=== PATIENT | male | born 2005 | race African-American/Black ===

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

== ENCOUNTER 2024-08-04 20:37 | Emergency (ER) | payer SELFPAY ==
[2024-08-04 20:37] VITALS: BP 135/78; PULSE 83; RESP 16; TEMP 36.9; O2SAT 99; BMI 25.9
--- NOTE | 2024-08-04 20:41 | RAD_ITS ---
EXAM: XR RIGHT SHOULDER COMPLETE, 2 OR MORE VIEWS CLINICAL INDICATION: FALL pain. TECHNIQUE: Two or more views of the right shoulder. This report was created using [email or web address] report generation technology. COMPARISON: None. FINDINGS: BONES/JOINTS: No significant abnormality. No acute fracture. No subluxation. Normal alignment. Preservation of the joint space. No sclerotic or destructive changes observed. SOFT TISSUES: No significant abnormality. No soft tissue swelling or gas. No radiopaque foreign body. RAD/Shoulder min 2 Views IMPRESSION: Negative right shoulder x-rays. Electronically Signed: Noah Kendrick DO at 21:27 EST ,
[2024-08-04] MEDS: Ibuprofen 600 MG Tablet PO (22:15)
--- NOTE | 2024-08-04 22:23 | EX.ED.GENINJ ---
HPI History of Present Illness Chief Complaint: Head Injury Informant: patient Narrative Narrative: Here with friends snowboard accident 2 hours prior to arrival. States he fell onto his right shoulder hit his head. No loss of consciousness. [place] little dizzy. No nausea or vomiting. No anticoagulants. Pain with movement of the shoulder. No other injuries. No medications taken prior to arrival. [facility] Medical History ADHD Home Medications ?Medication ?Instructions ?Recorded ?Last Taken ?Type dextroamphetamine-amphetamine 15 15 mg PO DAILY 03/12/21 Unknown History mg tablet (Adderall) Allergy/AdvReac Type Severity Reaction Status Date / Time No Known Allergies Allergy Verified 08/04/24 20:38 Social History Smoking Status: Never smoker substance use type: does not use ROS ROS ED Constitutional Constitutional ED: Denies chills, fever(s) or sweats ENT ENT ED: Denies sore throat Cardiovascular Cardiovascular: Denies chest pain, leg edema, palpitations or racing heartbeat Respiratory/Chest Respiratory/Chest: Denies cough, dyspnea or dyspnea on exertion Gastrointestinal Gastrointestinal: Denies abdominal pain, diarrhea, nausea or vomiting Genitourinary Genitourinary ED: Denies dysuria, hematuria or urinary frequency Musculoskeletal Musculoskeletal: Reports extremity pain; Denies back pain or neck pain Integumentary Denies rash or wounds Neurologic Neurologic: Reports headache(s); Denies paresthesias or weakness EXAM Physical Exam Const Vital Signs: 08/04/24 20:37 08/04/24 22:30 08/04/24 22:30 Temperature 98.4 F 97.8 F Temperature Source Oral Pulse Rate 83 84 Respiratory Rate 16 16 Respiratory Effort Normal Blood Pressure 135/78 H 118/74 Blood Pressure Mean 97 88 Pulse Ox 99 99 Oxygen Delivery Method Room Air Positive well nourished and well developed Constitutional Narrative: GCS 15. General Appearance ED: well developed and NAD HEENT Reports TM's clear and moist mucous membranes HEENT Narrative: No hemotympanums. normocephalic and atraumatic Tympanic Membrane ED: Yes TM's clear Eyes General Eye ED: Yes normal appearance of both eyes Neck full ROM Neck Narrative: No midline tenderness or step-offs. No meningismus. Chest Wall inspection of chest normal and palpation of chest normal Chest: Negative for tenderness Resp normal respiratory effort and normal air movement Effort and Inspection: symmetric chest movement; Negative for respiratory distress Cardio regular rate, regular rhythm and no murmurs Peripheral Pulses: pulses 2+ throughout GI normal to inspection, nondistended, normoactive bowel sounds and non-tender Palpation: Negative for guarding or rebound tenderness present Back/Spine Back/Spine Narrative: No midline thoracic or lumbar tenderness. Extremity Extremity Narrative: Right upper extremity: No clavicle tenderness. There is tenderness to the trapezius and proximal shoulder there is no deformities. No elbow tenderness. Soft compartments. Distal pulse intact. Left upper extremity: Full range of motion without any tenderness. General Extremety ED: Negative for edema or tenderness General Extremity: Negative for edema Neuro oriented x3, CN's II-XII intact bilaterally and no sensory deficits noted Sensorium / Orientation: awake and alert Skin no rashes or lesions noted and no wounds MDM MDM MDM Narrative Medical decision making narrative: Interventions / MDM: Differential diagnosis: Shoulder contusion, concussion Diagnosis considered but do not suspect: Fracture/dislocation however x-ray negative. Intracranial hemorrhage however Nexus CT head criteria negative. My EKG interpretation: N/A Imaging independently reviewed and interpreted by myself: Right shoulder 3 views: No fracture or dislocation also read by radiology. External documents reviewed: N/A Test considered but not ordered:N/A ED course: Patient head injury shoulder injury. [facility] CT head criteria negative. X-ray shoulder obtained through triage turbid myself and read by radiology shows no acute process. Discussed contusion discussed concussion discussed brain rest. Motrin started in the ED. Use Tylenol or Motrin as needed. Skin follow-up as an outpatient. All questions were answered. Re-evaluation: stable Disposition discussed with patient/family/significant other: Patient Case discussed with consulting clinician: N/A This note was generated with [employer] dictation software. It may contain incorrect words, spelling, and punctuation that were not noted in checking the note before signing. Radiography Diagnostic Testing: Clinical Impression(s) from Imaging Studies Shoulder X-Ray 08/04/24 20:41 IMPRESSION: Negative right shoulder x-rays. Electronically Signed: Noah Kendrick DO at 21:27 EST , Discharge Plan Triage Chief Complaint: Head Injury ED Provider: Gagan Bullock Dx/Rx/DC Orders Clinical Impression: Contusion of right shoulder, Concussion Instructions: Concussion Dc, ED Contusion, Upper Extremity Prescriptions: No Action dextroamphetamine-amphetamine [Adderall] 15 mg Tablet 15 mg PO DAILY Primary Care Provider: Jesika Peck Referrals: Jesika Peck MD [Primary Care Provider] - Ankit Rios MD [Med Staff - Meter Supervisor] - 1 Week if not improving Activity Restrictions/Additional Instructions: Shoulder x-ray negative. Tylenol or Motrin as needed. Print Language: Luxembourgish Disposition Disposition: Home, Self Care Discharge Date/Time: 08/04/24 22:32
[2024-08-04 22:30] VITALS: BP 118/74; PULSE 84; RESP 16; TEMP 36.6; O2SAT 99
== END 2024-08-04 22:32 | disposition home or self-care (01) ==
PROVIDERS: Emergency Provider Emergency Medicine; PCP Pediatrics; Visit Provider Emergency Medicine
DX: S06.0X0A Concussion without loss of consciousness, initial encounter (principal); W19.XXXA Unspecified fall, initial encounter; S40.011A Contusion of right shoulder, initial encounter; Y93.23 Activity, snow (alpine) (downhill) skiing, snowboarding, sledding, tobogganing and snow tubing; F90.9 Attention-deficit hyperactivity disorder, unspecified type; Z79.899 Other long term (current) drug therapy